=== PATIENT | female | born 1990 | race Asian ===

== ENCOUNTER 2019-12-11 08:22 | Inpatient (IN) | payer OTHER ==
[~2019-12-11] VITALS: Ht 157.5 cm; Wt 65.9 kg
[2019-12-11] MEDS ORDERED: MAGNESIUM SULF. PMX 20GM/500ML 500 ML IV ONE (08:38)
[2019-12-11] MEDS ORDERED: MAGNESIUM SULF. PMX 20GM/500ML 500 ML IV SCH (08:53)
[2019-12-11 09:01] VITALS: BP 113/75
[2019-12-11] MEDS ORDERED: LACTATED RINGERS 1,000 ML IV SCH ×2 (09:23→16:07)
[2019-12-11] MEDS ORDERED: OXYTOCIN 30U/ 0.9% NaCL 500ML 500 ML IV ONE (09:23)
[2019-12-11] MEDS ORDERED: D5%-LACTATED RINGERS 1,000 ML IV SCH (09:23)
[2019-12-11] MEDS ORDERED: METOCLOPRAMIDE 5 MG/ML, 2ML IVPush PRN (09:30)
[2019-12-11] MEDS ORDERED: ONDANSETRON 2MG/ML, 2ML IVPush PRN (09:30)
[2019-12-11] MEDS ORDERED: SODIUM CITRATE/CITRIC ACID 30 ML UDC PO PRN (09:30)
[2019-12-11] MEDS ORDERED: TERBUTALINE 1 MG/ML, 1ML SQ PRN (09:30)
[2019-12-11] MEDS ORDERED: FENTANYL PF 100 MCG/2ML IVPush PRN (09:30)
[2019-12-11] MEDS ORDERED: CALCIUM CARBONATE 500 MG TAB.CHEW PO PRN (09:30)
[2019-12-11] MEDS ORDERED: TERBUTALINE 1 MG/ML, 1ML IVPush PRN (09:30)
[2019-12-11 09:37] LABS: BASOPHILS # (AUTO) 0.01 x10^3/uL (0-0.1); BASOPHILS % (AUTO) 0 % (0-1); EOSINOPHILS # (AUTO) 0.01 x10^3/uL (0-0.4); EOSINOPHILS % (AUTO) 0 % (1-7); LYMPHOCYTES # (AUTO) 1.17 x10^3/uL (1-3.4); LYMPHOCYTES % (AUTO) 8 % (22-44); MD NO; MEAN CORPUSCULAR HEMOGLOBIN 31.6 pg (27.0-34.8); MEAN CORPUSCULAR HGB CONC 34.2 g/dL (32.4-35.8); MEAN CORPUSCULAR VOLUME 92.3 fL (80-100); MEAN PLATELET VOLUME 7.5 fL (7.4-10.4); MONOCYTES # (AUTO) 0.12 x10^3/uL (0.2-0.8); MONOCYTES % (AUTO) 1 % (2-9); NEUTROPHILS # (AUTO) 12.88 x10^3/uL (1.8-6.8); NEUTROPHILS % (AUTO) 91 % (42-75); PLATELET COUNT 238 x10^3/uL (130-400); RED CELL DISTRIBUTION WIDTH 13.2 % (9.6-15.2)
[2019-12-11 09:49] LABS: ALBUMIN 2.9 g/dL (3.4-5.0); ANION GAP 12 mmol/L (5-15); CALCIUM 7.3 mg/dL (8.5-10.1); CHLORIDE 105 mmol/L (98-107)
[2019-12-11] MEDS ORDERED: LIDOCAINE 1%, 20ML ONE (09:49)
[2019-12-11] MEDS ORDERED: MISOPROSTOL 200 MCG TABLET ONE (09:49)
[2019-12-11] MEDS ORDERED: NEWBORN KIT ONE (09:49)
[2019-12-11] MEDS ORDERED: OXYTOCIN 30U/ 0.9% NaCL 500ML 500 ML ONE (09:49)
[2019-12-11 09:53] LABS: ALANINE AMINOTRANSFERASE 17 U/L (12-78); ALKALINE PHOSPHATASE 78 U/L (45-117); BILIRUBIN,TOTAL 0.3 mg/dL (0.2-1.0); CREATININE 0.44 mg/dL (0.55-1.02); TOTAL PROTEIN 6.6 g/dL (6.4-8.2)
[2019-12-11] MEDS: PENICILLIN GK 2,500,000 UNITS in DEXTROSE 5% 100 ML IVPB SCH ×6 (10:45→22:10)
[2019-12-11] MEDS ORDERED: FENTANYL/BUPIV./NS/PF 250 ML EPIDCONT ONE (11:30)
[2019-12-11] MEDS ORDERED: LACTATED RINGERS 1,000 ML IVBOLUS PRN ×2 (11:30→16:30)
[2019-12-11] MEDS ORDERED: FENTANYL PF 500 MCG, BUPIVACAINE/PF 0.5%, 30ML 62.5 ML in SODIUM CHLORIDE 0.9% 177.5 ML EPIDCONT SCH (11:30)
[2019-12-11] MEDS ORDERED: OXYTOCIN 30U/ 0.9% NaCL 500ML 500 ML IV PRN (12:08)
[2019-12-11] MEDS ORDERED: BUPIVACAINE 0.25% ONE ×3 (15:26→15:50)
[2019-12-11] MEDS ORDERED: FENTANYL/BUPIV./NS/PF 250 ML EPIDCONT SCH (16:07)
[2019-12-11] MEDS ORDERED: EPHEDRINE 50 MG/ML, 1ML IVPush PRN (16:30)
[2019-12-11] MEDS ORDERED: PENICILLIN GK 2,500,000 UNITS in DEXTROSE 5% 100 ML IVPB SCH (17:30)
[2019-12-11] MEDS ORDERED: LACTATED RINGERS 1,000 ML INTUTE SCH (18:00)
[2019-12-11] MEDS ORDERED: LACTATED RINGERS 1,000 ML INTUTE PRN (18:00)
[2019-12-11] MEDS ORDERED: CEFAZOLIN 1,000 MG ONE (21:12)
[2019-12-11] MEDS ORDERED: OXYTOCIN 10 UNITS/ML, 1ML ONE (21:12)
[2019-12-11] MEDS ORDERED: ONDANSETRON 2MG/ML, 2ML ONE (21:12)
[2019-12-11] MEDS ORDERED: HYDROmorphone 2 MG/ML, 1ML ONE (21:13)
[2019-12-11] MEDS ORDERED: FENTANYL PF 100 MCG/2ML ONE (21:13)
[2019-12-11 21:14] VITALS: BP 115/67
[2019-12-11] MEDS ORDERED: LIDOCAINE-MPF 2% ,5ML ONE ×2 (21:15)
[2019-12-11] MEDS ORDERED: OXYTOCIN 30U/ 0.9% NaCL 500ML 500 ML IV SCH (22:31)
[2019-12-11] MEDS ORDERED: METOCLOPRAMIDE 5 MG/ML, 2ML IV PRN (23:00)
[2019-12-11] MEDS ORDERED: SIMETHICONE 80 MG CHEW TAB PO PRN (23:00)
[2019-12-11] MEDS ORDERED: METHYLERGONOVINE 0.2 MG/ML IM PRN (23:00)
[2019-12-12] MEDS ORDERED: OXYTOCIN 30U/ 0.9% NaCL 500ML 500 ML ONE (01:16)
[2019-12-12] MEDS ORDERED: IBUPROFEN 600 MG TABLET ONE (08:26)
[2019-12-12] MEDS ORDERED: OXYcodone/APAP 5/325MG TABLET ONE (08:27)
[2019-12-12] MEDS: OXYcodone/APAP 5/325MG TABLET PO PRN ×2 (08:30→13:00)
[2019-12-12] MEDS: IBUPROFEN 600 MG TABLET PO PRN ×2 (08:30→20:03)
[2019-12-12 09:22] LABS: MEAN CORPUSCULAR HEMOGLOBIN 31.3 pg (27.0-34.8); MEAN CORPUSCULAR HGB CONC 32.9 g/dL (32.4-35.8); MEAN CORPUSCULAR VOLUME 95.2 fL (80-100); MEAN PLATELET VOLUME 7.1 fL (7.4-10.4); PLATELET COUNT 204 x10^3/uL (130-400); RED BLOOD COUNT 3.39 x10^6/uL (3.82-5.3); RED CELL DISTRIBUTION WIDTH 13.3 % (9.6-15.2)
[2019-12-12 09:46] LABS: BASOPHILS % (AUTO) 0 % (0-1); EOSINOPHILS # (AUTO) 0.02 x10^3/uL (0-0.4); EOSINOPHILS % (AUTO) 0 % (1-7); LYMPHOCYTES # (AUTO) 1.26 x10^3/uL (1-3.4); LYMPHOCYTES % (AUTO) 8 % (22-44); MD SCAN; MONOCYTES # (AUTO) 0.76 x10^3/uL (0.2-0.8); MONOCYTES % (AUTO) 5 % (2-9); NEUTROPHILS % (AUTO) 87 % (42-75)
[2019-12-12] MEDS: PRENATAL VIT/IRON/FA 1 EACH TABLET PO SCH (12:00)
[2019-12-12] MEDS: DOCUSATE 100 MG CAPSULE PO PRN ×2 (12:57→20:03)
[2019-12-12] MEDS: ACETAMINOPHEN 325 MG TABLET PO PRN (12:57)
[2019-12-12 13:00] VITALS: BP 111/67
[2019-12-12 16:00] VITALS: BP 110/70
[2019-12-12] MEDS ORDERED: DIPH,PERTUSS(ACELL),TET VAC/PF NC IM-VACC ONE (18:51)
[2019-12-12 20:00] VITALS: BP 115/77
[2019-12-12 23:49] VITALS: BP 106/71
[2019-12-13] MEDS: IBUPROFEN 600 MG TABLET PO PRN ×3 (02:59→19:52)
[2019-12-13] MEDS ORDERED: BISACODYL 10 MG SUPP PR PRN (08:00)
[2019-12-13] MEDS: DOCUSATE 100 MG CAPSULE PO PRN ×2 (08:47→19:52)
[2019-12-13] MEDS: PRENATAL VIT/IRON/FA 1 EACH TABLET PO SCH (08:47)
[2019-12-13 09:30] VITALS: BP 136/83
[2019-12-13] MEDS: ACETAMINOPHEN 325 MG TABLET PO PRN (12:38)
[2019-12-13] MEDS: OXYcodone/APAP 5/325MG TABLET PO PRN ×2 (12:38→19:52)
[2019-12-13 19:40] VITALS: BP 118/76
[2019-12-14] MEDS: IBUPROFEN 600 MG TABLET PO PRN ×3 (04:31→20:06)
[2019-12-14] MEDS: OXYcodone/APAP 5/325MG TABLET PO PRN ×4 (04:31→17:12)
[2019-12-14 07:10] VITALS: BP 109/72
[2019-12-14] MEDS: DOCUSATE 100 MG CAPSULE PO PRN (08:58)
[2019-12-14] MEDS: PRENATAL VIT/IRON/FA 1 EACH TABLET PO SCH (08:58)
[2019-12-14 19:35] VITALS: BP 117/80
[2019-12-15] MEDS: IBUPROFEN 600 MG TABLET PO PRN ×3 (02:14→14:19)
[2019-12-15] MEDS: PRENATAL VIT/IRON/FA 1 EACH TABLET PO SCH (08:19)
[2019-12-15] MEDS: DOCUSATE 100 MG CAPSULE PO PRN (08:19)
[2019-12-15 08:30] VITALS: BP 108/71
[2019-12-15] MEDS ORDERED: DOCU-131 PO (17:20)
[2019-12-15] MEDS ORDERED: OXYC-302 PO (17:20)
[2019-12-15] MEDS ORDERED: IBUP-1222 PO (17:20)
== END 2019-12-15 21:37 | disposition home or self-care (01) | DRG 806 ==
LOC: LDIP 08:37 → 2NE 12-12 08:39 → 2NW 12-12 11:15
PROVIDERS: ADMIT Obstetrics & Gynecology Maternal & Fetal Medicine; ATTEND Obstetrics & Gynecology Maternal & Fetal Medicine
PROC: 10E0XZZ Delivery of Products of Conception, External Approach (ICD-10-PCS; principal; 2019-12-15)
PROC: 0UQGXZZ Repair Vagina, External Approach (ICD-10-PCS; 2019-12-15)
PROC: 3E0R3BZ Introduction of Anesthetic Agent into Spinal Canal, Percutaneous Approach (ICD-10-PCS; 2019-12-15)
PROC: 00HU33Z Insertion of Infusion Device into Spinal Canal, Percutaneous Approach (ICD-10-PCS; 2019-12-15)
DX: O42.913 Preterm premature rupture of membranes, unspecified as to length of time between rupture and onset of labor, third trimester (principal); O71.7 Obstetric hematoma of pelvis; Z37.0 Single live birth; O70.20 Third degree perineal laceration during delivery, unspecified; Z3A.34 34 weeks gestation of pregnancy; O62.3 Precipitate labor; Z20.828 Contact with and (suspected) exposure to other viral communicable diseases; O64.0XX0 Obstructed labor due to incomplete rotation of fetal head, not applicable or unspecified
CPT/HCPCS: 36415; J3490; J7121; 80053; 85025; 86592; 86850; 86900; 86923; 87635; G0378; J0690; J1170; J2405; J2540; J3010; J2590; J7120